=== PATIENT | female | born 1975 | race Caucasian/White ===

== ENCOUNTER 2020-09-10 17:45 | Emergency (ER) | payer OTHER, SELFPAY ==
[2020-09-10 17:53] VITALS: BP 175/110; PULSE 78; RESP 18; TEMP 36.8; O2SAT 100
--- NOTE | 2020-09-10 17:57 | ED.ABDPAIN ---
HPI - Abdominal Pain General Chief Complaint: Urogenital-Female Stated Complaint: abnormal period Time Seen by Provider: 09/10/20 17:47 Source: patient Mode of arrival: ambulatory Limitations: no limitations History of Present Illness HPI narrative: Patient is a 45-year-old female who presents to emergency department for evaluation of vaginal bleeding for the last 12 days patient notes over the last 3 days she has had increasing bleeding patient is managed by primary care for this patient notes that she is gone through 3 super absorbent pads an hour for the last 3 days. Patient notes some mild cramping in the lower abdomen and lower back. Patient is managed by primary care for this and has historically had abnormal manses. Patient denies other complaints presents per private vehicle in no distress Related Data Home Medications Medication Instructions Recorded Confirmed hydrochlorothiazide 09/10/20 losartan 09/10/20 omeprazole 09/10/20 venlafaxine mg 09/10/20 09/10/20 Allergies Allergy/AdvReac Type Severity Reaction Status Date / Time No Known Allergies Allergy Verified 09/10/20 17:52 Review of Systems Review of Systems: All systems reviewed & are unremarkable except as noted in HPI and below PMFSH Past Medical History Medical History Hypertension Surgical History Surgical History History of tubal ligation Social History Social History Smoking status: Never smoker Gender identity (if verbalized by the patient): Female Exam Narrative: Exam Narrative: GENERAL: Well-appearing, well-nourished, and in no acute distress. HEAD: Normocephalic, atraumatic. EYES: PERRLA and EOMI. ENT: Nares clear, no rhinorrhea or epistaxis. Mucous membranes moist. CHEST: Clear to auscultation. No respiratory distress. No wheezes rales or rhonchi HEART: Regular rate and rhythm. No murmur heard. Normal peripheral pulses. ABDOMEN: Soft, nontender, nondistended FEMALE GENITOURINARY: Small amount of dark red blood in the vaginal vault, otherwise normal exam EXTREMITIES: Normal range of motion. No edema. SKIN: Warm, dry, no rash. NEURO: No focal deficits. Alert and oriented x3. PSYCH: Normal mood and affect. Course Course Emergency Course: Patient in the room hemodynamically stable no high risk changes in the blood work will be referred to gynecological services for further evaluation provided with reasons to return Vital Signs Vital signs: Vital Signs Temperature 98.2 F 09/10/20 17:53 Pulse Rate 78 09/10/20 17:53 Respiratory Rate 18 09/10/20 17:53 Blood Pressure 175/110 H 09/10/20 17:53 Pulse Oximetry 100 09/10/20 17:53 Temperature 98.2 F 09/10/20 17:53 Pulse Rate 78 09/10/20 17:53 Respiratory Rate 18 09/10/20 17:53 Blood Pressure 175/110 H 09/10/20 17:53 Pulse Oximetry 100 09/10/20 17:53 MDM - Abdominal Pain MDM Narrative Medical decision making narrative: Patient in the room in no distress aware of case findings treatment plan and diagnosis felt appropriate for outpatient reevaluation by gynecological services patient was stable H&H not orthostatic Lab Data Result diagrams: 09/10/20 18:20 09/10/20 18:20 Labs: Lab Results 09/10/20 09/10/20 Range/Units 18:20 18:20 WBC 10.4 H (4.5-10.0) K/mm3 RBC 4.16 L (4.2-5.4) M/mm3 Hgb 11.5 L (12.0-15.0) g/dL Hct 35.4 L (37.0-47.0) % MCV 85.1 (80-100) fl MCH 27.6 (26-34) pg MCHC 32.5 (32-36) g/dl RDW 14.0 (11.5-14.5) % Plt Count 460 H (150-375) k/mm3 MPV 11.0 H (7.4-10.4) fl Immature Gran % (Auto) 0.6 H (0-0.5) % Neut % (Auto) 54.1 (45.5-73.1) % Lymph % (Auto) 29.2 (18.3-44.2) % [place] % (Auto) 8.3 (2.6-8.5) % Eos % (Auto) 6.6 H (0-4.4) % Baso % (Auto) 1.2 (0.2-1.2) % L
[2020-09-10 18:25] LABS: Basophils Absolute Auto 0.1 K/mm3 (0.0-0.1); Basophils Percent Auto 1.2 % (0.2-1.2); Eosinophils Absolute Auto 0.7 K/mm3 (0-0.3); Eosinophils Percent Auto 6.6 % (0-4.4); Hematocrit 35.4 % (37.0-47.0); Hemoglobin 11.5 g/dL (12.0-15.0); Immature Granulocyte Absolute 0.06 K/mm3 (0.00-0.031); Immature Granulocyte Percent A 0.6 % (0-0.5); Lymphocytes Absolute Auto 3.03 K/mm3 (0.9-3.2); Lymphocytes Percent Auto 29.2 % (18.3-44.2); Mean Corpuscular HGB Conc 32.5 g/dl (32-36); Mean Corpuscular Hemoglobin 27.6 pg (26-34); Mean Corpuscular Volume 85.1 fl (80-100); Monocytes Absolute Auto 0.9 K/mm3 (0.1-0.6); Monocytes Percent Auto 8.3 % (2.6-8.5); Neutrophils Absolute Auto 5.6 K/mm3 (1.3-6.7); Neutrophils Percent Auto 54.1 % (45.5-73.1); Platelet Count Result 460 k/mm3 (150-375); Red Blood Count 4.16 M/mm3 (4.2-5.4); White Blood Count 10.4 K/mm3 (4.5-10.0)
[2020-09-10 18:36] LABS: Anion Gap 11 mmol/L (8-16); Blood Urea Nitrogen 26 mg/dL (7-17); Calcium 9.3 mg/dL (8.4-10.2); Carbon Dioxide 27 mmol/L (22-30); Chloride 102 mmol/L (98-107); Estimated CRCL calculation 69 ml/min; Estimated Glomerular Filt Rate > 60; Glucose 103 mg/dL (65-105); Potassium 3.7 mmol/L (3.4-5.0); Sodium 140 mmol/L (137-145)
[2020-09-10 18:43] VITALS: BP 127/83; PULSE 91
[2020-09-10 18:44] VITALS: BP 121/84; BP 126/79; PULSE 84; PULSE 86
[2020-09-10 19:01] VITALS: BP 112/79; PULSE 81; RESP 17; O2SAT 98
== END 2020-09-10 19:02 | disposition home or self-care (01) ==
PROVIDERS: Emergency Medicine Emergency Medical Services; Emergency Provider Emergency Medicine; PCP Nurse Practitioner Family
DX: N93.9 Abnormal uterine and vaginal bleeding, unspecified (principal); I10 Essential (primary) hypertension
CPT/HCPCS: 36415; 80048; 85025; 99284

== ENCOUNTER 2020-09-15 11:45 | Outpatient (CLI) | payer OTHER, SELFPAY ==
[2020-09-15 12:45] LABS: Free T4 Free Thyroxine 0.81 ng/mL (0.78-2.19)
[2020-09-20 12:56] LABS: Prolactin 5.8 ng/mL (***)
== END 2020-09-15 11:46 | disposition home or self-care (01) ==
PROVIDERS: PCP Nurse Practitioner Family; Visit Provider Obstetrics & Gynecology
DX: N92.0 Excessive and frequent menstruation with regular cycle (principal)
CPT/HCPCS: 36415; 84146; 84439; 84443

== ENCOUNTER 2020-09-22 15:10 | Outpatient (CLI) | payer OTHER, SELFPAY ==
--- NOTE | ~2020-09-22 | US_ITS ---
EXAMINATION: US pelvic complete w TV EXAM DATE: 09/22/2020 15:51 INDICATION: N93.9 - Abnormal uterine and vaginal bleeding, unspecified. TECHNIQUE: Pelvic transabdominal and transvaginal sonogram was performed. There are multiple graysca le and Doppler images available for interpretation. There is no prior study for comparison. FINDINGS: Uterus measures 9.9 x 5.1 x 4.9 cm, and is morphologically normal. Endometrial stripe henrique sures 17 mm, borderline enlargement. There is no free pelvic fluid. Right adnexa: The ovary measures 5.3 x 3.5 x 1.9 cm, with an anechoic cystic lesion measuring 4.1 cm, probably the dominant follicle. Ovarian vascular flow confirmed. Left adnexa: The ovary measures 2.3 x 2.3 x 2.3 cm and is morphologically normal. Ovarian vascular fl ow confirmed. IMPRESSION: 1. Right ovarian simple cystic lesion most likely physiologic cyst. 2. Borderline endometrial thickening for premenopausal status. 3. Consider 6 week follow-up pelvic sonogram. Reviewed, dictated and finalized at location B. STRY WORKER
== END 2020-09-22 15:11 | disposition home or self-care (01) ==
PROVIDERS: PCP Nurse Practitioner Family; Visit Provider Obstetrics & Gynecology
DX: N93.9 Abnormal uterine and vaginal bleeding, unspecified (principal); N83.201 Unspecified ovarian cyst, right side
CPT/HCPCS: 76830; 76856

== ENCOUNTER 2021-01-19 15:50 | Outpatient (CLI) | payer OTHER, SELFPAY ==
--- NOTE | ~2021-01-19 | MM_ITS ---
EXAMINATION: MM screening jeet BI w chelly HISTORY: Screening TECHNIQUE: Craniocaudal and mediolateral oblique 3-D tomosynthesis images were obtained and synthetic 2-D images were generated. CAD analysis was submitted and interpreted. COMPARISON: No prior mammogram is available for comparison at this institution. BREAST PARENCHYMAL COMPOSITION: There are scattered areas of fibroglandular density. FINDINGS: There is a mass in the upper inner quadrant of the right breast, middle third. There is no mammographic evidence for malignancy in the left breast. IMPRESSION: 1. Right breast mass, upper inner quadrant, middle third. 2. Additional spot compression and mediolateral views with possible follow-up breast ultrasound recom mended. BI-RADS Category 0: Incomplete: Needs additional imaging evaluation. Reviewed, dictated and finalized at location A. EAD OPERATOR IMPRESSION: 1. Right breast mass, upper inner quadrant, middle third. 2. Additional spot compression and mediolateral views with possible follow-up b reast ultrasound recommended. BI-RADS Category 0: Incomplete: Needs additional imaging evaluation.
--- NOTE | ~2021-01-19 | US_ITS ---
EXAMINATION: US pelvic complete w TV DATE: 01/19/2021 16:46 INDICATION: Ovarian cyst TECHNIQUE: Multiple transabdominal and endovaginal sonographic images of the pelvis were obtained. COMPARISON: 09/22/2020 FINDINGS: The uterus measures 8.1 x 4.3 x 5.4 cm. There is a 1.4 cm intramural fibroid of the posteri or uterine body. The endometrial complex measures 10 mm. The right ovary is obscured by bowel gas how ever no right adnexal abnormality is seen. The left ovary measures 1.1 x 0.6 x 2.2 cm. There is kian l vascular flow in the left ovary. There is a small amount of likely physiologic free fluid in the pe lvis. IMPRESSION: 1. Unremarkable pelvic ultrasound. Right ovary obscured by bowel gas however no adnexal abnormality i s seen. Reviewed, dictated and finalized at location A. PROGRAMMER ANALYST IMPRESSION: 1. Unremarkable pelvic ultrasound. Right ovary obscured by bowel gas however no adnexal abnormality is seen.
== END 2021-01-19 15:51 | disposition home or self-care (01) ==
PROVIDERS: PCP Nurse Practitioner Family; Visit Provider Obstetrics & Gynecology
DX: Z12.31 Encounter for screening mammogram for malignant neoplasm of breast (principal); N83.209 Unspecified ovarian cyst, unspecified side; R92.8 Other abnormal and inconclusive findings on diagnostic imaging of breast
CPT/HCPCS: 76830; 76856; 77063; 77067

== ENCOUNTER 2021-04-06 11:25 | Outpatient (CLI) | payer OTHER, SELFPAY ==
--- NOTE | ~2021-04-06 | US_ITS ---
US breast RT limited 04/06/2021 11:49 Indication: Follow-up right breast mass demonstrated on recent mammogram Procedure: High-resolution ultrasound of the right breast Comparison: Mammography dated 01/19/2021 and ultrasound dated 06/29/2019 Findings: At 1:00, 2 cm from the nipple, there is a 1 cm cyst. At 1:00, 5 cm from the nipple, there i s an 11 mm cyst. These correspond to the mammographic findings. No suspicious sonographic masses to s uggest malignancy. Impression: 1: Benign right breast cyst corresponding to the mammographic abnormalities. No evidence for malignan cy. Routine yearly screening mammogram and regular clinical breast examination are recommended. BI-RADS CATEGORY 2 - BENIGN FINDINGS Reviewed, dictated and finalized at location A. Impression: 1: Benign right breast cyst corresponding to the mammographic abnormalities. No evidence for malignancy. Routine yearly screening mammogram and regular clinical breast examination are recommended. BI-RADS CATEGORY 2 - BENIGN FINDINGS
== END 2021-04-06 11:26 | disposition home or self-care (01) ==
PROVIDERS: PCP Nurse Practitioner Family; Visit Provider Obstetrics & Gynecology
DX: N60.01 Solitary cyst of right breast (principal)
CPT/HCPCS: 76642